=== PATIENT | female | born 1965 | race Caucasian/White ===

== ENCOUNTER 2016-12-01 19:49 | Emergency (ER) | payer OTHER ==
[~2016-12-01] VITALS: Ht 165.1 cm; Wt 72.5 kg
[2016-12-01] MEDS ORDERED: ONDA4TAB7 PO (20:02)
[2016-12-01] MEDS ORDERED: TAMS-11 PO (20:02)
[2016-12-01] MEDS ORDERED: OXYC5CAP4 PO (20:02)
[2016-12-01] MEDS ORDERED: PROCHLORPERAZINE 5 MG/ML, 2ML ONE (20:17)
[2016-12-01 20:30] LABS: HEMOGLOBIN 13.8 g/dL (11.7-16.4)
[2016-12-01] MEDS ORDERED: SODIUM CHLORIDE FLUSH 10ML SYR IVF ONE (20:30)
[2016-12-01] MEDS ORDERED: PROCHLORPERAZINE 5 MG/ML, 2ML IM ONE (20:30)
[2016-12-01] MEDS ORDERED: PROMETHAZINE 25 MG/ML, 1ML IM ONE (20:30)
[2016-12-01] MEDS ORDERED: SODIUM CHLORIDE 0.9% 1,000ML IVBOLUS ONE (20:30)
[2016-12-01 20:37] LABS: ASPARTATE AMINO TRANSFERASE 15 U/L (15-37); BLOOD UREA NITROGEN 18 mg/dL (7-18)
[2016-12-01 20:43] LABS: DIFF TOTAL CELLS COUNTED 100 CELL DIFF
[2016-12-01 20:51] LABS: VERIFY COUNTS? YES
[2016-12-01 21:58] LABS: PATH.CAST-FLAG NOT PRESENT; SPERM-FLAG NOT PRESENT; SRC-FLAG NOT PRESENT; XTAL-FLAG NOT PRESENT; YLC-FLAG NOT PRESENT
[2016-12-01 23:32] VITALS: BP 137/82
== END 2016-12-01 23:39 | disposition home or self-care (01) ==
LOC: ED 21:38
DX: N13.2 Hydronephrosis with renal and ureteral calculous obstruction (principal); R31.9 Hematuria, unspecified; Z87.442 Personal history of urinary calculi
CPT/HCPCS: 36415; 51701; 80053; 81001; 85025; 96360; 96361; 99285; J7030; P9612